=== PATIENT | male | born 1965 | race Caucasian/White ===

== ENCOUNTER 2021-08-10 12:07 | Emergency (ER) | payer OTHER, SELFPAY ==
[2021-08-10 12:10] VITALS: BP 149/94; PULSE 66; RESP 15; TEMP 36; O2SAT 100; BMI 27.9
--- NOTE | 2021-08-10 14:48 | CT_ITS ---
STUDY: CT ABDOMEN AND PELVIS WITHOUT CONTRAST REASON FOR EXAM: Male, 56 years old. Pain- left flank/ groin RADIATION DOSAGE (If Supplied By Facility): CTDIvol = ( 9.46 ) mGy, DLP = ( 524.80 ) mGycm TECHNIQUE: Transaxial images were obtained from the dome of the diaphragm to the symphysis pubis without oral contrast, and without intravenous contrast. Sagittal and coronal images were reconstructed. Individualized dose optimization techniques were used for this CT. COMPARISON: None. FINDINGS: Increased linear markings in the posterior lateral aspect of the lingular segment of the left upper lobe suggestive of scarring. The visualized portions of the heart are within normal limits. There is a 1.9 cm cyst in the central portion of the right lobe of the liver adjacent to the gallbladder fossa. Normal gallbladder and extrahepatic biliary system. There is a benign calcified granuloma of the spleen. Normal pancreas. Normal bilateral adrenal glands. Normal right kidney. Left perinephric and periureteric stranding. Mild degree of left hydronephrosis and left hydroureter due to a 2 mm calculus at the left ureterovesical junction. Normal visualized stomach. Normal small intestine. Normal colon. The appendix is visualized and appears normal. There is scattered atherosclerotic calcification of the abdominal aorta, without a demonstrated aneurysm. Normal inferior vena cava. There is borderline retroperitoneal lymphadenopathy with enlarged nodes no greater than 10mm in the short axis diameter. Normal urinary bladder. There is a small umbilical hernia containing fat. Small right inguinal hernia containing fat. There are mild degenerative changes of the visualized lumbar spine. CT/Abdomen/Pelvis without Cont IMPRESSION: 2 mm calculus at the left ureterovesical junction causing mild degree of left hydronephrosis and hydroureter with left perinephric stranding. 1.9 cm cyst in the central portion of the right lower liver adjacent to gallbladder fossa. Electronically Signed: Gustabo Clarke MD at 15:24 EST , Service support ,
[2021-08-10] MEDS: 0.9% Normal Saline 1,000 ML 1000 ML IV (14:55)
[2021-08-10] MEDS: Ketorolac 15 MG/ML Vial IV (14:55)
[2021-08-10 15:06] LABS: Absolute Lymphocyte Count 1.05 X10^3/uL (0.83-4.51); Absolute Neutrophil Count 13.7 X10^3/uL (2.0-7.7); Basophil# 0.04 X10^3/uL; Basophil% 0.3 % (0-1); Eosinophil# 0.01 X10^3/uL; Eosinophils% 0.1 % (0-5); Hematocrit 48.7 % (40-54); Hemoglobin 15.9 g/dL (13.0-16.5); Lymphocyte # 1.05 X10^3/ul (0.83-4.51); Lymphocyte % 6.8 % (19-41); Mean Corp Hgb Conc 32.6 g/dL (32-36); Mean Corpuscular Volume 91.9 fL (80-94); Mean Platelet Vol. 12.9 fl (6.2-12.0); Monocyte# 0.63 X10^3/uL; Monocyte% 4.1 % (0-10); NRBC Flagged by Analyzer 0 % (0-5); Neutrophil # 13.69 X10^3/uL (2.7-7.7); Neutrophil % 88.3 % (47-70); Platelet Count 197 K/mm3 (150-450); RBC Distribution Width CV 13.2 % (11.6-14.6); RBC Distribution Width SD 44.8 fl (35.1-43.9); White Blood Count 15.5 K/mm3 (4.4-11.0)
[2021-08-10 15:17] LABS: AST(SGOT) 26 U/L (15-37); Alanine Aminotransfer ALT/SGPT 40 U/L (16-61); Albumin, Serum 4.1 g/dL (3.2-5.0); Alkaline Phosphatase 128 U/L (45-117); Anion Gap 4 (5-15); BUN 22 mg/dL (7-18); BUN/Creat Ratio 19.6 RATIO (10-20); Calcium,Total 9.3 mg/dL (8.5-10.1); Chloride 106 mmol/L (98-107); Creatinine, Serum 1.12 mg/dL (0.70-1.30); EST Glomerular Filtration Rate 71 mL/min (>60); Est Glom Filt Rate - Afr Amer 86 mL/min (>60); Estimated Creatinine Clearance 74.23 ml/min; Glucose 114 mg/dL (74-106); Potassium 4.2 mmol/L (3.5-5.1); Protein, Total 8.1 g/dL (6.4-8.2); Sodium Level 137 mmol/L (136-145)
[2021-08-10 15:26] LABS: Bacteria 0 SEEN /hpf (None Seen); Mucous, Urine 0 SEEN /hpf (<or=2+); Red Blood Cells-Urine 0 SEEN /hpf (0-5); Squamous Epithelial Cells - UA 0 SEEN /hpf (0-5); White Blood Cells 0 SEEN /hpf (0-5)
[2021-08-10 15:37] LABS: Color, Urine Yellow (Yellow); Glucose, Dipstick Normal (Normal); Ketone-Dipstick 5 mg/dl (Negative); Leukocyte Esterase-Dipstick Negative /ul (Negative); Nitrite-Dipstick Negative (Negative); Occult Blood-Urine 50 /ul (Negative); Protein-Dipstick 30 mg/dl (Negative); Specific Gravity, Urine 1.025 (1.002-1.030); Urine Bilirubin Dipstick Negative (Negative); Urine Clarity Cloudy (Clear); Urine Urobilinogen Normal (Normal)
--- NOTE | 2021-08-10 15:42 | ED.VIS.GI ---
HPI HPI - GI History of Present Illness Chief Complaint: Abd Pain Informant: patient Narrative Narrative: Patient is a 56-year-old male present with left-sided groin pain. He states it started around 8 AM this morning. He notes it was after it had a good morning bowel movement. The pain is in his left groin and radiates into his testicle and into his back. He has a sense of urgency as if he needs to have a bowel movement. Has a funny feeling in his chest that he needs to burp but goes away when he burps. Denies any nausea. Denies any fever or chills. Did not take any medication for his pain prior to arrival. Initially went to urgent care clinic where they did a urinalysis that showed blood. He was sent to the ER to rule out kidney stone. Patient denies any known history of kidney stones. He notes he does drink a lot of Mountain Dew and does not drink a whole lot of water. Does not have a regular doctor. No other complaints at this time. 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 PFSH PFSH Home Medications hydrocodone-acetaminophen 1 tab PO Q6H PRN 3 Days #12 tab 08/10/21 [Rx Last Taken Unknown] ibuprofen 600 mg PO Q6H PRN PRN #20 tab 08/10/21 [Rx Last Taken Unknown] ondansetron 4 mg PO Q8H PRN #10 tab 08/10/21 [Rx Last Taken Unknown] tamsulosin [Flomax] 0.4 mg PO DAILY #7 cap 08/10/21 [Rx Last Taken Unknown] Allergy/AdvReac Type Severity Reaction Status Date / Time Penicillins [PCN] Allergy Anaphylaxis Verified 08/10/21 12:10 Social History (Updated 03/10/20 @ 11:10 by Rene PAIGE, PA) Smoking Status: Never smoker ROS ROS ED Constitutional Constitutional ED: Denies chills or fever(s) ENT ENT ED: Denies rhinorrhea or sore throat Cardiovascular Cardiovascular: Denies chest pain Respiratory/Chest Respiratory/Chest: Denies cough or dyspnea Gastrointestinal Gastrointestinal: Reports abdominal pain; Denies diarrhea, nausea or vomiting Genitourinary Genitourinary ED: Reports other Details: left groin pain ; Denies dysuria, hematuria or urinary frequency Musculoskeletal Musculoskeletal: Denies arthralgias or myalgias Integumentary Denies rash Neurologic Neurologic: Denies headache(s), paresthesias or weakness Psychiatric Psychiatric: Denies depression EXAM Physical Exam Const Vital Signs: 08/10/21 12:10 Temperature 96.8 F L Temperature Source Temporal Pulse Rate 66 Respiratory Rate 15 Blood Pressure 149/94 H Blood Pressure Mean 112 Pulse Ox 100 Oxygen Delivery Method Room Air Positive well nourished and well developed General Appearance ED: well developed HEENT Reports moist mucous membranes normocephalic and atraumatic Neck supple Resp normal respiratory effort and clear to auscultation bilaterally Cardio regular rate, regular rhythm and no murmurs GI non-tender and non-distended GI Narrative: No reproducible area of tenderness. Patient points to his left inguinal area as his area of pain Auscultation: normoactive bowel sounds Palpation: soft; Negative for guarding or rigid Back/Spine no CVA tenderness Lumbar Spine / Lower Back: Negative for lumbar spinal tenderness Neuro moves all extremities and no sensory deficits noted Sensorium / Orientation: alert, oriented to person, oriented to place and oriented to time Psych mental status grossly normal Skin Lesions: no lesions Rashes: no rashes MDM MDM MDM Narrative Medical decision making narrative: Patient's evaluate for sudden onset of left groin pain. He had hematuria at the urgent care clinic. The pain radiates into his testicle and his back and is consistent with a kidney stone. He has a leukocytosis no obvious source of infection. I suspect this is reactive. Urinalysis shows blood but no signs of infection. Kidney function is normal with a creatinine of 1.12. I do not have prior labs to compare to in the computer. Patient notes he does not see a doctor regularly. He is given IV Toradol and fluids with significant improvement of his symptoms. He is found to have a 2 mm distal ureteral lithiasis with associated mild hydronephrosis. I suspect this is the cause of his presentation today. As it is 2 mm and should pass spontaneously. Patient be discharged with Flomax, pain control and nausea control medication. He is given referral for primary care doctor as well as urology. He is counseled on return precautions. Patient has an incidental finding of a 1.9 cm cyst at the central portion of the right lower liver which he is informed of and the need for outpatient nonemergent follow-up. Lab Data Attestation: I reviewed the patient's lab results. Labs: Laboratory Results - last 24 hr 08/10/21 08/10/21 08/10/21 14:10 14:10 Unknown WBC 15.5 H RBC 5.30 Hgb 15.9 Hct 48.7 MCV 91.9 MCH 30.0 MCHC 32.6 RDW Std Deviation 44.8 H RDW Coeff of Gricelda 13.2 Plt Count 197 MPV 12.9 H Immature Gran % (Auto) 0.400 Neut % (Auto) 88.3 H Lymph % (Auto) 6.8 L Barren % (Auto) 4.1 Eos % (Auto) 0.1 Baso % (Auto) 0.3 Absolute Neuts (auto) 13.7 H Absolute Lymphs (auto) 1.05 Nucleated RBC % 0 Sodium 137 Potassium 4.2 Chloride 106 Carbon Dioxide 27.0 Anion Gap 4 L BUN 22 H Creatinine 1.12 Estim Creat Clear Calc 74.23 Est GFR (MDRD) Af Amer 86 Est GFR (MDRD) Non-Af 71 BUN/Creatinine Ratio 19.6 Glucose 114 H Calcium 9.3 Total Bilirubin 0.70 AST 26 ALT 40 Alkaline Phosphatase 128 H Total Protein 8.1 Albumin 4.1 Globulin 4.0 Albumin/Globulin Ratio 1.0 Urine Color Yellow Urine Clarity Cloudy Urine pH 5.0 Ur Specific [place] 1.025 Urine Protein 30 H Urine Glucose (UA) Normal Urine Ketones 5 H Urine Occult Blood 50 H Urine Nitrite Negative Urine Bilirubin Negative Urine Urobilinogen Normal Ur Leukocyte Esterase Negative Radiography Diagnostic Testing: Clinical Impression(s) from Imaging Studies Abdomen/Pelvis CT 08/10/21 14:48 IMPRESSION: 2 mm calculus at the left ureterovesical junction causing mild degree of left hydronephrosis and hydroureter with left perinephric stranding. 1.9 cm cyst in the central portion of the right lower liver adjacent to gallbladder fossa. Electronically Signed: Gustabo Clarke MD at 15:24 EST , Service support , Discharge Plan Triage Chief Complaint: Abd Pain ED Provider: Evita Khan Dx/Rx/DC Orders Clinical Impression: Kidney stone on left side, Renal colic on left side Instructions: ED Kidney Stone w/ Colic Prescriptions: New hydrocodone-acetaminophen 5-325 mg tablet 1 tab PO Q6H PRN (Reason: pain) 3 Days Qty: 12 RF: 0 tamsulosin [Flomax] 0.4 mg capsule 0.4 mg PO DAILY Qty: 7 RF: 0 ibuprofen [ibuprofen] 600 MG tablet 600 mg PO Q6H PRN PRN (Reason: Pain Score 1-10/10) Qty: 20 RF: 0 ondansetron 4 mg tablet,disintegrating 4 mg PO Q8H PRN (Reason: nausea and vomiting) Qty: 10 RF: 0 Primary Care Provider: Care Physician,No Primary Referrals: Kota Lobo MD [STAFF PHYSICIAN] - Elena Pompa [NON-STAFF] - Care Physician,No Primary [Primary Care Provider] - Disposition Disposition: Home, Self Care
[2021-08-10 15:51] LABS: Amorphous Sediment 4+
[2021-08-10 16:34] VITALS: BP 143/79; PULSE 84; RESP 20; O2SAT 97
--- NOTE | 2021-08-10 16:35 | ED.RN ---
THIS NURSE REVIEWED D/C INSTRUCTIONS WITH PT. PT VERBALIZED UNDERSTANDING OF INSTRUCTIONS. IV D/C. IV CATHETER INTACT. PT TOLERATED WELL. PT DENIES FURTHER NEEDS OR QUESTIONS AT THIS TIME
== END 2021-08-10 16:36 | disposition home or self-care (01) ==
PROVIDERS: Emergency Provider Emergency Medicine; Visit Provider Emergency Medicine
DX: N13.2 Hydronephrosis with renal and ureteral calculous obstruction (principal); K76.89 Other specified diseases of liver
CPT/HCPCS: 74176; 80053; 81001; 85025; 96361; 96374; 99283; J7030; A4216

== ENCOUNTER → 2023-11-27 | Outpatient (CLI) | payer OTHER, SELFPAY ==
[2023-11-27 17:24] LABS: Absolute Lymphocyte Count 2.61 X10^3/uL (0.83-4.51); Absolute Neutrophil Count 4.1 X10^3/uL (2.0-7.7); Basophil# 0.04 X10^3/uL; Basophil% 0.5 % (0-1); Eosinophil# 0.25 X10^3/uL; Eosinophils% 3.3 % (0-5); Hematocrit 45.4 % (40-54); Hemoglobin 14.7 g/dL (13.0-16.5); Lymphocyte # 2.61 X10^3/ul (0.83-4.51); Lymphocyte % 33.9 % (19-41); Mean Corp Hgb Conc 32.4 g/dL (32-36); Mean Corpuscular Hgb 29.6 pg (27.0-32.0); Mean Corpuscular Volume 91.3 fL (80-94); Mean Platelet Vol. 12.7 fl (6.2-12.0); Monocyte# 0.63 X10^3/uL; Monocyte% 8.2 % (0-10); NRBC Flagged by Analyzer 0 % (0-5); Neutrophil # 4.14 X10^3/uL (2.7-7.7); Neutrophil % 53.8 % (47-70); Platelet Count 208 K/mm3 (150-450); RBC Distribution Width CV 13.7 % (11.6-14.6); RBC Distribution Width SD 45.8 fl (35.1-43.9); Red Blood Count 4.97 M/mm3 (4.6-6.2); White Blood Count 7.7 K/mm3 (4.4-11.0)
[2023-11-27 19:26] LABS: AST(SGOT) 29 U/L (15-37); Alanine Aminotransfer ALT/SGPT 41 U/L (16-61); Albumin, Serum 3.8 g/dL (3.2-5.0); Alkaline Phosphatase 117 U/L (45-117); Anion Gap 5 (5-15); BUN 18 mg/dL (7-18); BUN/Creat Ratio 19.8 RATIO (10-20); Chloride 104 mmol/L (98-107); Cholesterol 172 mg/dL (200); Creatinine, Serum 0.91 mg/dL (0.70-1.30); EST Glomerular Filtration Rate 90 mL/min (>60); Est Glom Filt Rate - Afr Amer 109 mL/min (>60); Globulin 3.8 g/dL (2.2-4.2); Glucose 111 mg/dL (74-106); High Density Lipoprotein 28 mg/dL; PSA,Total - Annual Screen 2.23 ng/mL (0.00-4.00); Potassium 4.1 mmol/L (3.5-5.1); Protein, Total 7.6 g/dL (6.4-8.2); Sodium Level 138 mmol/L (136-145); T4 Free Direct 0.91 ng/dL (0.76-1.46); Thyroid Stim Hormone (TSH) 0.59 uIU/mL (0.358-3.74); Triglycerides 402 mg/dL
== END | disposition home or self-care (01) ==
LOC: BFHLAB 16:16
PROVIDERS: PCP Family Medicine; Referring Provider Family Medicine; Visit Provider Family Medicine
DX: Z00.00 Encounter for general adult medical examination without abnormal findings (principal); Z12.5 Encounter for screening for malignant neoplasm of prostate; E01.0 Iodine-deficiency related diffuse (endemic) goiter
CPT/HCPCS: 36415; 80053; 80061; 84153; 84439; 84443; 85025; G0103

== ENCOUNTER → 2023-12-08 | Outpatient (CLI) | payer OTHER, SELFPAY ==
--- NOTE | 2023-12-08 08:37 | CT_ITS ---
STUDY: LOW DOSE CT LUNG CANCER SCREENING REASON FOR EXAM: Male, 58 years old. SCREENING FOR LUNG CA RADIATION DOSAGE (If Supplied By Facility): CTDIvol = ( 4.02 ) mGy, DLP = ( 143.46 ) mGycm TECHNIQUE: No contrast was administered. Low dose technique was utilized (average mAS-38 and kVp 120). 1.25 mm axial source images with a slice interval of 1.25-mm were reconstructed in lung windows. 2.5 mm axial source images with a slice interval of 2.5-mm were reconstructed in lung windows. 5.0 mm axial source images with a slice interval of 5.0-mm were reconstructed in soft tissue windows. COMPARISON: None. Emphysema: Mild emphysema. Some subpleural scarring. 6 mm noncalcified nodule in the inferior lingula on image 170 and follow-up CT is recommended in 6 months document stability. Endobronchial lesion: None Aorta: No thoracic aortic aneurysm. CORONARY ARTERIES: Coronary artery calcification is seen. Heart: No cardiomegaly. Pulmonary artery: Normal Mediastinal nodes: Normal Other chest and abdominal findings: None CT/Low Dose CT Lung Screening IMPRESSION: Lung-RADS category 3 - Continue screening with LDCT in 6 months. IMPORTANT NOTES FOR USE: ACR Lung-RADS Version 1.1 Assessment Categories Release Date: 2018 Category: Coded 0-4 bases on nodule(s) with highest degree of suspicion. Negative screen is defined as categories 1 and 2; a positive screen is defined as categories 3 and 4. Category 3 and 4A nodules that are unchanged on interval CT should be coded as category 2, and individuals returned to screening in 12 months. Category 4X: Category 3 or 4 nodules with additional imaging findings that increase the suspicion of lung cancer, such as spiculation, GGN that doubles in size in 1 year, enlarged lymph notes, etc. Category Modifiers: S (significant finding unrelated to lung cancer) Electronically Signed: Sumeet Chavez MD at 0:50 EDT ,
--- NOTE | 2023-12-08 08:47 | US_ITS ---
STUDY: THYROID ULTRASOUND REASON FOR EXAM: Male, 58 years old. THYROMEGALY TECHNIQUE: Ultrasound evaluation of the thyroid was performed with real-time and static guillen-scale imaging. COMPARISON: None. FINDINGS: RIGHT LOBE: The right lobe of the thyroid gland measures 5.3 x 2.1 x 2.0 cm. There is a homogeneous echotexture. Nodule 1:8 x 8 x 8 mm mixed cystic and solid isoechoic wider than tall smoothly marginated nodule with no echogenic foci (TR 2) in the inferior right lobe consistent with an adenoma. LEFT LOBE: The left lobe of the thyroid gland measures 5.3 x 1.9 x 2.3 cm. There is a homogeneous echotexture. Some tiny (less than 5 mm) colloid cysts. ISTHMUS: The isthmus measures 4 mm thick. . The regional lymph nodes are normal. US/Thyroid IMPRESSION: Some tiny adenoma and colloid cysts but no dominant nodule. Electronically Signed: Sumeet Chavez MD at 22:16 EDT ,
== END | disposition home or self-care (01) ==
PROVIDERS: PCP Family Medicine; Referring Provider Family Medicine; Visit Provider Family Medicine
DX: Z12.2 Encounter for screening for malignant neoplasm of respiratory organs (principal); E01.0 Iodine-deficiency related diffuse (endemic) goiter; Z87.891 Personal history of nicotine dependence
CPT/HCPCS: 71271; 76536

== ENCOUNTER 2024-01-11 07:55 | Day surgery (SDC) | payer OTHER, SELFPAY ==
[2024-01-11] VITALS (9 sets, daily range): BP systolic 113–125; BP diastolic 75–93; PULSE 63–72; RESP 16; TEMP 36.3–36.8; O2SAT 92–96; BMI 27.4
--- NOTE | 2024-01-11 | COLBX_PTH ---
PATIENT: ASHLEY DE LUNA LOC: EN U#:[id number] AGE/SX: 58/M ROOM: RE01/11/[address]: Dr. Nestor Sampson MD : 1965 BED: DIS: 01/11/2024 SPEC #: [id number] RECD: 01/11/24 14:08 STATUS: YEISON BUSTAMANTEChasidy #: [id number] RUSS: 01/11/24 00:[address]: Nestor Sampson DEPT: SURGICAL PATHOLOGY RECD BY: Bi Storm ENTERED: 01/14/24 09:07 SP TYPE: COLON BX OTHR DR: Dr. Brian Merino DO Tissues: A - Ascending colon B - Transverse colon C - Descending colon D - Sigmoid colon biopsy E - Rectum, NOS Procedures: Surgery Specimen Level IV HEADER OPERATION: Colonoscopy, biopsy, polypectomy PRE-OP DIAGNOSIS: Encounter for screening for malignant neoplasm of colon TISSUE SUBMITTED: A- Ascending colon polyp biopsy, B- Distal transverse colon abnormal mucosal fold biopsy, C- Descending colon polyp, D- Sigmoid colon polyp, E- Rectal polyp biopsy MICROSCOPIC DIAGNOSIS A. Ascending colon polyp, biopsy: Fragments of tubular adenoma. B. Distal transverse colon abnormal mucosal fold, biopsy: Fragments of tubular adenoma. C. Descending colon polyp, polypectomy: Fragments of tubular adenoma. D. Sigmoid colon polyp, polypectomy: Fragments of tubulovillous adenoma. E. Rectal polyp, biopsy: Fragments of hyperplastic polyp. MARCEL/ 01/15/2024 MICROSCOPIC DESCRIPTION Slides are reviewed. GROSS DESCRIPTION A. Received in fixative is one container labeled with the patient's name and designated Ascending colon polyp. The specimen consists of two irregular fragments of light ruiz soft tissue that in aggregate measure 0.6 x 0.3 x 0.1 cm. The specimen is totally submitted in one cassette. B. Received in fixative is one container labeled with the patient's name and designated Distal transverse colon. The specimen consists of two irregular fragments of light ruiz soft tissue that in aggregate measure 0.6 x 0.3 x 0.1 cm. The specimen is totally submitted in one cassette. C. Received in fixative is one container labeled with the patient's name and designated Ascending colon polyp. The specimen consists of a ruiz-pink polyp measuring 0.4 x 0.4 x 0.2cm. Also present in the container is a piece of ruiz soft tissue measuring 0.2 x 0.2 x 0.1cm. The entire specimen is submitted in one cassette. D. Received in fixative is one container labeled with the patient's name and designated Sigmoid colon polyp. The specimen consists of a pink congested polyp measuring 1.0 x 0.6 x 0.6cm. The presumed base is inked. The polyp is serially sectioned. Also present in the container is a fragment of pink soft tissue measuring 0.5 x 0.3 x 0.2cm. Entire specimen is submitted in one cassette. E. Received in fixative is one container labeled with the patient's name and designated Rectal colon biopsy. The specimen consists of two irregular fragments of light ruiz soft tissue that in aggregate measure 0.6 x 0.3 x 0.1 cm. The specimen is totally submitted in one cassette. CPT:92456f1 MARCEL/ 01/14/2024 TC: 1
[2024-01-11] MEDS: Lactated Ringers 1,000 ML 15 ML IV (08:15)
--- NOTE | 2024-01-11 08:34 | PCM.PRE.AN2 ---
ASA Classification* ASA Classification ASA Classification: 2 Assessment & Plan Anesthesia* Anesthesia Assessment Anesthesia Assessment: Discussed sedation and/or anesthesia options, risks, benefits, and alternatives with patient/parents/legal guardian/POA. Questions invited. The patient/parents/legal guardian/POA seems to understand and agrees to proceed with anesthesia plan. Reviewed the physical assessment, medical history, allergy history and patient home medications list prior to surgery/procedure/anesthetic and documented any changes. Performed airway and anesthesia risk assessments. Anesthesia Type Anesthesia Type: MAC Pre-Assessment Diagnosis/Proposed Procedure Planned Operative Procedure(s): CSCOPE OA Anesthesia History Anesthesia History - emanations analysis technician: Anesthesia History - emanations analysis technician Hx Hospitalization No 01/07/24 12:26 Any Problems With Anesthesia No 01/07/24 12:26 Cholinesterase deficiency No 01/07/24 12:26 You/Your Family Experience No 01/07/24 12:26 fever (hyperthermia) with Relationship Recent Exposure to Contagious No 01/11/24 08:13 Disease Does patient have nerve No 01/07/24 12:26 stimulator Patient instructed to have device shut off --Does patient have Pacemaker No 01/11/24 08:13 or ICD? When Was Last Pacemaker Check QUESTION #4 FULL TEXT: You/Your Family Experience fever (hyperthermia) with Anesthesia Last Oral Intake Last Oral intake: Last Oral Intake NPO since Meds taken in AM with sips of water? Meds patient instructed to take am of surgery PONV PONV - emanations analysis technician: PONV - emanations analysis technician Female No 01/07/24 12:26 HX of Motion Sickness No 01/07/24 12:26 HX of N/V After Surgery No 01/07/24 12:26 Non-Smoker Yes 01/07/24 12:26 Duration of Surgery greater No 01/07/24 12:26 than 60 minutes Number of Risk Factors 1 01/07/24 12:26 PONV Score Low Risk 01/07/24 12:26 Height & Weight Height & Weight: Anesthesia: Height & Weight Height 5 ft 10 in 01/11/24 08:13 Weight: 86.7 kg 01/11/24 08:13 Body Mass Index (BMI) 27.4 01/11/24 08:13 Respiratory Assessment Respiratory Assessment - emanations analysis technician: Respiratory Tract Infection Hx - emanations analysis technician Hx Respiratory Tract Infection No 01/07/24 12:26 STOP Sleep Apnea STOP Sleep Apnea - emanations analysis technician: STOP Sleep Apnea - emanations analysis technician Hx Hypertension No 01/07/24 12:26 Hx Sleep Apnea No 01/07/24 12:26 CPAP BIPAP Do you snore loudly (louder No 01/07/24 12:26 than talking or can be heard Do you often feel tired/ Yes 01/07/24 12:26 fatigued/ sleepy during daytime? Has anyone observed you stop No 01/07/24 12:26 breathing during sleep? STOP Results Negative 01/07/24 12:26 QUESTION #5 FULL TEXT : Do you snore loudly (louder than talking or can be heard through closed doors)? 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 Specify any problems Hx of Preganancy in last 3 N/A 01/07/24 12:26 Months Nurse Filling Out Transfusion DSCHRIBER 01/07/24 12:26 & Questions: Date: 01/07/24 01/07/24 12:26 Time: 12:27 01/07/24 12:26 Patient unable to answer at this time (ie. confused, unrespo /Reproduction History /Reproductive History - emanations analysis technician: /Reproductive Hx- emanations analysis technician Hx Now No 01/07/24 12:26 Gestational Age (in weeks): EDC: Hx Hx Para Hx Section SAB No 01/07/24 12:26 Active Medications Active Medications: Current Medications Generic Name Dose Route Start Last Admin Trade Name Freq PRN Reason Stop Dose Admin Lactated Ringer's 1,000 mls @ 15 mls/hr 01/11/24 08:15 01/11/24 08:15 IV 15 mls/hr .Q48H TANYA Administration Anesthesia Focused Assessment* Temperature: 97.6 F Pulse Rate: 72 Blood Pressure: 125/93 Respiratory Rate: 16 Pulse Ox: 96 Airway Assessment Mouth opens: >3 cm Mallampati Score: II Focused Labs Anesthesia Preop lab: CBC WBC 7.7 K/mm3 (4.4-11.0) 11/27/23 16:17 RBC 4.97 M/mm3 (4.6-6.2) 11/27/23 16:17 Hgb 14.7 g/dL (13.0-16.5) 11/27/23 16:17 Hct 45.4 % (40-54) 11/27/23 16:17 Plt Count 208 K/mm3 (150-450) 11/27/23 16:17 CHEMISTRY Potassium 4.1 mmol/L (3.5-5.1) 11/27/23 16:17 Sodium 138 mmol/L (136-145) 11/27/23 16:17 BUN 18 mg/dL (7-18) 11/27/23 16:17 Creatinine 0.91 mg/dL (0.70-1.30) 11/27/23 16:17 Glucose 111 mg/dL (74-106) H 11/27/23 16:17 TSH 0.59 uIU/mL (0.358-3.74) 11/27/23 16:17 COAG Review of Systems (Anesthesia) ROS Narrative System reviewed and no additional complaints, except as documented. [facility] Medical History Wears glasses Wears dentures Anxiety Arthritis Back pain Shortness of breath on exertion Former smoker History of stress test History of irregular heartbeat Home Medications ?Medication ?Instructions ?Recorded ?Last Taken ?Type nirmatrelvir 300 mg (150 mg See Rx Instructions PO .COMPLEX 06/27/22 Unknown Rx x2)-ritonavir 100 mg tablet,dose #30 tabs pack (Paxlovid) acetaminophen 325 mg tablet 650 mg PO Q6H PRN PRN pain 12/04/23 Unknown History (Tylenol) aspirin 81 mg tablet,delayed 81 mg PO QHS 01/07/24 01/09/24 History release (Adult Aspirin Regimen) atorvastatin 10 mg tablet 10 mg PO QHS 01/07/24 Unknown History Allergy/AdvReac Type Severity Reaction Status Date / Time bee venom protein (honey Allergy Severe Anaphylaxis Verified 01/11/24 08:12 bee) (bee stings) venom-wasp (wasp sting) Allergy Severe Anaphylaxis Verified 01/11/24 08:12 Penicillins (PCN) Allergy Anaphylaxis Verified 01/11/24 08:12 Family History Aunt Colon cancer Surgical History History of carpal tunnel surgery of right wrist History of splenectomy Social History household members: spouse current occupational status: employed Smoking Status: Former smoker Tobacco: How many years used: 40 alcohol intake: never substance use type: does not use
--- NOTE | 2024-01-11 09:16 | HP.PCM_ITS ---
[facility] - General General Date of Service: 01/11/24 Chief Complaint: Screening colonoscopy HPI Narrative ASHLEY DE LUNA, is a 58 M who presents screening colonoscopy. He confirms his preappointment questionnaire that he has not experienced any change in her bowel habits-and particularly denies any notice of blood. He also shares a family history of colon cancer in his maternal aunt and estimates that she was first diagnosed in her mid 70s. Lastly he confirms that his prep was completed successfully and that his output is now clear. [facility] Medical History Wears glasses Wears dentures Anxiety Arthritis Back pain Shortness of breath on exertion Former smoker History of stress test History of irregular heartbeat Home Medications ?Medication ?Instructions ?Recorded ?Last Taken ?Type nirmatrelvir 300 mg (150 mg See Rx Instructions PO .COMPLEX 06/27/22 Unknown Rx x2)-ritonavir 100 mg tablet,dose #30 tabs pack (Paxlovid) acetaminophen 325 mg tablet 650 mg PO Q6H PRN PRN pain 12/04/23 Unknown History (Tylenol) aspirin 81 mg tablet,delayed 81 mg PO QHS 01/07/24 01/09/24 History release (Adult Aspirin Regimen) atorvastatin 10 mg tablet 10 mg PO QHS 01/07/24 Unknown History Allergy/AdvReac Type Severity Reaction Status Date / Time bee venom protein (honey Allergy Severe Anaphylaxis Verified 01/11/24 08:12 bee) (bee stings) venom-wasp (wasp sting) Allergy Severe Anaphylaxis Verified 01/11/24 08:12 Penicillins (PCN) Allergy Anaphylaxis Verified 01/11/24 08:12 Family History Aunt Colon cancer Surgical History History of carpal tunnel surgery of right wrist History of splenectomy Social History household members: spouse current occupational status: employed Smoking Status: Former smoker Tobacco: How many years used: 40 alcohol intake: never substance use type: does not use Past Medical/Surgical History Planned Operation Planned Operative Procedure(s): CSCOPE OA Previous Hospitalizations/Surgeries HX Hospitalizations: No Any Problems With Anesthesia: No You/Your Family Experience Fever (Hyperthermia) With Anes: No Cholinesterase deficiency: No Cardiovascular Hx of Irregular Heartbeat and/or Afib: No Hx Heart Attack: No Hx Congestive Heart Failure: No Hx Hypertension: No Hx Pacemaker: No Respiratory Hx Chronic Obstructive Pulmonary Disease (COPD): No Hx Asthma: No Hx Emphysema: No Hx Sleep Apnea: No Hx Respiratory Tract Infection/Cold (presently): No Do You Snore Loudly (louder than talking or can be heard): No Do You Often Feel Tired/ Fatigued/ Sleepy Dring Daytime?: Yes Has Anyone Observed You Stop Breathing During Sleep?: No Result (for STOP score): Negative Smoking Status: Former smoker Gastrointestinal Hx Ulcer: No Neurological Hx Seizures: No Hx Head/Neck Injury: No Hx Headaches: No Hx Back Injury/Pain: No Does patient have nerve stimulator: No Reproduction : No Miscellaneous Recent Exposure to Contagious Disease: No Allergies bee venom protein (honey bee) (bee stings) Allergy (Severe, Verified 01/11/24 08:12) Anaphylaxis venom-wasp (wasp sting) Allergy (Severe, Verified 01/11/24 08:12) Anaphylaxis Penicillins (PCN) Allergy (Verified 01/11/24 08:12) Anaphylaxis Discharge Is Pt Admitted From a [facility], or a Long-Term: No After D/C, Where Do you Plan to Go: Return Home Vital Signs Vital Signs Vital Signs: 01/11/24 08:13 01/11/24 08:13 01/11/24 08:34 Temperature 97.6 F L 97.6 F L Temperature Source Temporal Pulse Rate 72 72 Respiratory Rate 16 16 Respiratory Pattern Normal Blood Pressure 125/93 H 125/93 H Blood Pressure Mean 103 Blood Pressure Source Monitor Blood Pressure Position Semi-Fowlers Blood Pressure Location Right Arm Pulse Ox 96 96 Oxygen Delivery Method Room Air Weight Weight: 191 lb 2.252 oz Body Mass Index (BMI) 27.4 Physical Exam Const alert, oriented x3 and no apparent distress GI GI Narrative: Nondistended, soft Assessment & Plan Assessment/Plan (1) Encounter for screening for malignant neoplasm of colon: PLAN: Patient is a 58-year-old male who presents for his first screening colonoscopy. He denies any concerning bowel habits but does remark of an isolated period of scant bright red blood per rectum during a fairly recent upper respiratory tract infection. He notes that that was an isolated experience and is no longer having any difficulties. Family history is not suggestive for significant genetic risk. Will now proceed with screening colonoscopy as scheduled. Surgery Risks - Colonoscopy Risks Include but are not Limited To: Risks include but are not limited to: Bleeding, perforation requiring further surgery, inability to complete colonoscopy requiring barium enema.
--- NOTE | 2024-01-11 10:07 | PCM.POST.ANE ---
Anesthesia: Postop Eval I Current Vital Signs Temperature: 97.4 F Pulse Rate: 68 Blood Pressure: 121/79 Respiratory Rate: 16 Pulse Ox: 95 Oxygen Delivery Method: Room Air Assessment Airway patent: Yes Spontaneous unlabored respirations: Yes Mental status: Asleep nausea: No Vomiting: No Anesthesia Complication: No Fluid Hydration Crystalloid volume administer (ml): 800 Total IV fluid infused: 800 Progress Note Anesthesia document: Postop Eval 1 completed: Yes
--- NOTE | 2024-01-11 10:07 | OP.CCLET_ITS ---
01/11/2024 Brian Merino [address] [place] [address] Re : Colonoscopy procedure for Arturo Mota Dear Dr. Merino This procedure was performed on Thursday, January 11, 2024. My impressions and recommendations are as follows: Impressions : - One 3 mm, non-bleeding polyp in the distal ascending colon. Biopsied. - Nodular mucosa in the distal transverse colon. Biopsied. - Three 3 to 12 mm polyps in the sigmoid colon and in the descending colon, removed with a hot snare. Resected and retrieved. - Two 1 to 3 mm polyps in the rectum. Biopsied. - The examination was otherwise normal on direct and retroflexion views. Recommendations : - Discharge patient to home (via wheelchair). - Resume previous diet today. - No aspirin, ibuprofen, naproxen, or other non-steroidal anti-inflammatory drugs for 2 days after biopsy. - Await pathology results. - Repeat colonoscopy date to be determined after pending pathology results are reviewed for surveillance based on pathology results. - Telephone my office for pathology results in 1 week. My findings are described in the full procedure note, which is enclosed. If I can be of further assistance, please feel free to contact me at Doctor phone number(s): , Work: . Sincerely, Nestor Sampson MD 01/11/2024 10:06:44 AM This report has been signed electronically.
--- NOTE | 2024-01-11 10:07 | OP.COLON_ITS ---
Patient Name: Arturo Mota Procedure Date: 01/11/2024 9:02 AM Date of : 1965 Age: 58 Procedure: Colonoscopy Indications: Screening for colon cancer: Family history of colon polyps in distant relative(s) 60 or older Providers: Nestor Sampson MD Referring MD: Nestor Sampson MD Medicines: See the Anesthesia note for documentation of the administered medications Patient Profile: Refer to note in patient chart for documentation of history and physical. Last Colonoscopy: none. The patient's first colonoscopy is today. Complications: No immediate complications. Estimated blood loss: Minimal. Procedure: Pre-Anesthesia Assessment: - The heart rate, respiratory rate, oxygen saturations, blood pressure, adequacy of pulmonary ventilation, and response to care were monitored throughout the procedure. After I obtained informed consent, the scope was passed under direct vision. Throughout the procedure, the patient's blood pressure, pulse, and oxygen saturations were monitored continuously. The pediatric colonoscope was introduced through the anus and advanced to the cecum, identified by appendiceal orifice and ileocecal valve. The colonoscopy was performed without difficulty. The patient tolerated the procedure well. The quality of the bowel preparation was good. Scope In: 9:21:38 AM Scope Withdrawal Time 0 hours 30 minutes 14 seconds Scope Out: 9:58:23 AM Total Procedure Duration Time 0 hours 36 minutes 45 seconds Findings: The perianal and digital rectal examinations were normal. A 3 mm, non-bleeding polyp was found in the distal ascending colon. The polyp was sessile. Biopsies were taken with a cold forceps for histology. Estimated blood loss was minimal. A localized area of mildly nodular mucosa was found in the distal transverse colon. Biopsies were taken with a cold forceps for histology. Estimated blood loss was minimal. Three pedunculated polyps were found in the sigmoid colon and descending colon. The polyps were 3 to 12 mm in size. These polyps were removed with a hot snare. Resection and retrieval were complete. Estimated blood loss was minimal. Two semi-sessile polyps were found in the rectum. The polyps were 1 to 3 mm in size. Biopsies were taken with a cold forceps for histology. Estimated blood loss was minimal. The exam was otherwise without abnormality on direct and retroflexion views. Impression: - One 3 mm, non-bleeding polyp in the distal ascending colon. Biopsied. - Nodular mucosa in the distal transverse colon. Biopsied. - Three 3 to 12 mm polyps in the sigmoid colon and in the descending colon, removed with a hot snare. Resected and retrieved. - Two 1 to 3 mm polyps in the rectum. Biopsied. - The examination was otherwise normal on direct and retroflexion views. Recommendation: - Discharge patient to home (via wheelchair). - Resume previous diet today. - No aspirin, ibuprofen, naproxen, or other non-steroidal anti-inflammatory drugs for 2 days after biopsy. - Await pathology results. - Repeat colonoscopy date to be determined after pending pathology results are reviewed for surveillance based on pathology results. - Telephone my office for pathology results in 1 week. Procedure Code(s): --- Professional --- 45654, Colonoscopy, flexible; with removal of tumor(s), polyp(s), or other lesion(s) by snare technique 16204, 59, Colonoscopy, flexible; with biopsy, single or multiple Diagnosis Code(s): --- Professional --- Z12.11, Encounter for screening for malignant neoplasm of colon Z83.71, Family history of colonic polyps D12.2, Benign neoplasm of ascending colon K63.89, Other specified diseases of intestine D12.5, Benign neoplasm of sigmoid colon D12.4, Benign neoplasm of descending colon D12.8, Benign neoplasm of rectum CPT copyright 2021 [employer]. All rights reserved. The codes documented in this report are preliminary and upon residential monitor review may be revised to meet current compliance requirements. Nestor Sampson MD 01/11/2024 10:06:44 AM This report has been signed electronically. Number of Addenda: 0 Note Initiated On: 01/11/2024 9:02 AM
--- NOTE | 2024-01-11 15:12 | PCM.POSTANE2 ---
Anesthesia Postop Eval I Sum Postop Eval Completion status Anesthesia document: Postop Eval 1 completed: Yes Anesthesia Postop Eval I Summary Anesthesia Postop Eval I Summary: Anesthesia Postop Eval I: Assessment Summary Airway patent Yes 01/11/24 10:13 [email or web address] Spontaneous unlabored Yes 01/11/24 10:13 [email or web address] respirations Mental status Asleep 01/11/24 10:13 [email or web address] nausea No 01/11/24 10:13 [email or web address] Vomiting No 01/11/24 10:13 [email or web address] Anesthesia Postop Eval I: Fluid Summary Crystalloid volume administer 800 01/11/24 10:13 [email or web address] (ml) Colloids volume administered ( ml) Blood Product volume administered (ml) Total IV fluid infused 800 01/11/24 10:13 [email or web address] Anesthesia Postop Eval I: Summary Notes Anesthesia Complication No 01/11/24 10:13 [email or web address] Anesthesia Complication Comment: Post-operative progress note Anesthesia: Postop Eval II Evaluation Mental status: Awake and Calm Pain Level: 0 nausea: No Vomiting: No Complications Anesthesia Complication: No
== END 2024-01-11 11:02 | disposition home or self-care (01) ==
LOC: EN 07:55 → AC 07:56
PROVIDERS: PCP Family Medicine; Referring Provider Surgery; Visit Provider Surgery
PROC: 0DJD8ZZ Inspection of Lower Intestinal Tract, Via Natural or Artificial Opening Endoscopic (ICD-10-PCS; CPT 45378; principal; 2024-01-11 08:55)
DX: Z12.11 Encounter for screening for malignant neoplasm of colon (principal); K62.1 Rectal polyp; Z80.0 Family history of malignant neoplasm of digestive organs; Z79.82 Long term (current) use of aspirin; Z87.891 Personal history of nicotine dependence; Z79.899 Other long term (current) drug therapy; D12.2 Benign neoplasm of ascending colon; D12.3 Benign neoplasm of transverse colon; D12.4 Benign neoplasm of descending colon; D12.5 Benign neoplasm of sigmoid colon
CPT/HCPCS: 45380; 45385; 88305; J7120; J2405

== ENCOUNTER → 2024-06-28 | Outpatient (CLI) | payer OTHER, SELFPAY ==
--- NOTE | 2024-06-28 07:52 | CT_ITS ---
STUDY: LOW DOSE CT LUNG CANCER SCREENING REASON FOR EXAM: Male, 59 years old. Long-term smoking history RADIATION DOSAGE (If Supplied By Facility): CTDIvol = ( 3.02 ) mGy, DLP = ( 103.82 ) mGycm TECHNIQUE: No contrast was administered. Low dose technique was utilized (average mAS-38 and kVp 120). 1.25 mm axial source images with a slice interval of 1.25-mm were reconstructed in lung windows. 2.5 mm axial source images with a slice interval of 2.5-mm were reconstructed in lung windows. 5.0 mm axial source images with a slice interval of 5.0-mm were reconstructed in soft tissue windows. COMPARISON: 12/08/2023 FINDINGS: Lung windows show the lungs to be normally expanded. Chronic interstitial changes again noted in both lung ortiz with a stable fibrotic scar/lingular nodule again measuring approximately 6 mm unchanged from the previous study. No organized infiltrate or effusion. Limited soft tissue windows show unremarkable thyroid gland. No suspicious axillary, mediastinal or perihilar adenopathy. There are calcified coronary vessels. The thoracic aorta tapers normally. Limited cuts through the upper abdomen do not show a suspicious abnormality. Bony structures show degenerative change CT/Low Dose CT Lung Screening IMPRESSION: Lung-RADS category 3 - Continue screening with LDCT in 6 months. IMPORTANT NOTES FOR USE: ACR Lung-RADS Version 1.1 Assessment Categories Release Date: 2018 Category: Coded 0-4 bases on nodule(s) with highest degree of suspicion. Negative screen is defined as categories 1 and 2; a positive screen is defined as categories 3 and 4. Category 3 and 4A nodules that are unchanged on interval CT should be coded as category 2, and individuals returned to screening in 12 months. Category 4X: Category 3 or 4 nodules with additional imaging findings that increase the suspicion of lung cancer, such as spiculation, GGN that doubles in size in 1 year, enlarged lymph notes, etc. Category Modifiers: S (significant finding unrelated to lung cancer) Electronically Signed: Stanislav Leahy MD at 14:52 EST ,
== END | disposition home or self-care (01) ==
LOC: CT 07:49
PROVIDERS: PCP Family Medicine; Referring Provider Family Medicine; Visit Provider Family Medicine
DX: Z12.2 Encounter for screening for malignant neoplasm of respiratory organs (principal); R91.1 Solitary pulmonary nodule; Z87.891 Personal history of nicotine dependence
CPT/HCPCS: 71271

== ENCOUNTER → 2024-11-07 | Outpatient (CLI) | payer OTHER, SELFPAY ==
--- NOTE | 2024-11-07 09:54 | RAD_ITS ---
PROCEDURE: ABDOMEN SINGLE VIEW 11/07/2024 REASON FOR EXAM: PAIN/ BLOATING TECHNIQUE: 2 supine views of the abdomen were obtained COMPARISON: None FINDINGS: Bowel gas: Bowel gas pattern is normal. No evidence of bowel obstruction. Calcifications: No suspicious calcifications. Bones: The bones are unremarkable. Other: RAD/Abdomen Single View IMPRESSION: NO ACUTE FINDINGS Reading Location: [id number]
== END | disposition home or self-care (01) ==
LOC: MTLAB 09:52
PROVIDERS: PCP Family Medicine; Referring Provider Family Medicine; Visit Provider Family Medicine
DX: R10.9 Unspecified abdominal pain (principal)
CPT/HCPCS: 74018